=== PATIENT | male | born 1950 | race Caucasian/White ===

== ENCOUNTER 2018-11-28 05:41 | Day surgery (SDC) | payer OTHER ==
[~2018-11-28] VITALS: Ht 175.3 cm; Wt 89.8 kg
[~2018-11-28 05:41] MED LIST: AMLODIPINE BESY10 MG PO; COREG6.25 MG PO; HYDROCHLOROTH12.5 M2 PO; HYDROXYCHLOROQ200 M1 PO; LEFLUNOMIDE 1010 MG PO; MOBIC15 MG PO; PREDNISONE 5 MG5 M1 PO; RITUXAN100 MG/10 IV; SYNTHROID50 MCG PO; VENTOLIN HFA 1818 GM INH; VITAMIN D1000 UNI1 PO
[2018-11-28 09:52] VITALS: BP 155/83
--- NOTE | 2018-12-02 06:23 | O ---
[address] [place] [address] OPERATIVE REPORT Name: JEMAL BRYSON Room #: DEP [facility] M..#: [id number] Admission: 11/28/18 ������������������ Attend Phys: Paul Marshall MD Discharge: 11/28/18 ������������������ Date of : 48 Report #: [id number] THIS REPORT FOR: //name// CC: Parish Marshall DATE OF SERVICE: 11/28/2018 PREOPERATIVE DIAGNOSIS: Right orbital dermal lipoma. POSTOPERATIVE DIAGNOSIS: Right orbital dermal lipoma. PROCEDURE: Right transconjunctival orbitotomy. SURGEON: Paul Marshall M.D. ADMINISTRATION CLERK: None. ANESTHESIA: General. COMPLICATIONS: None. SPECIMEN: To path. 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 In addition, he has conjunctival scarring that has gone all the way into his cornea from the ectropion effect on the conjunctival surface. He presents today for a transconjunctival approach to the lesion. Informed consent was obtained to include but not limited to the potential risk for loss of vision, bleeding, infection, double vision and the potential need for further surgery or treatment. DESCRIPTION OF PROCEDURE: The patient was taken to the operating room where general anesthesia was administered. The patient was subsequently prepped and draped in the usual sterile fashion. A transconjunctival injection of Xylocaine with epinephrine mixed with Marcaine and Wydase was administered supratemporally. An additional aliquot of anesthetic was administered over the right lateral canthus to achieve the 7th nerve block. The right upper lid was then distracted superiorly in the superotemporal quadrant of the globe inspected. A radial incision was then made with a Agus scissor and drawn down through the conjunctiva and through Tenon's capsule. It was then drawn down through the tissue that was overlying the orbital dermal [facility] [address] [place] [address] OPERATIVE REPORT Name: JEMAL BRYSON Jesse Room #: DEP [facility].#: [id number] Admission: 11/28/18 ������������������ Attend Phys: Paul Marshall MD Discharge: 11/28/18 ������������������ Date of : 48 Report #: [id number] lipoma. The dermal lipoma was grasped and delivered through the incision in a buttonhole like fashion, it from the underlying lacrimal gland and lateral rectus muscle. The mass was drawn anteriorly as thought far safe as possible prior to being clamped at its base and Tenon's capsule. The mass was then amputated with a high-temp cautery. That stump was then grasped with the Juan forceps as the Monique clamp was released. Hemostasis was achieved with pinpoint monopolar cautery. The stump was then released to retract back into the orbit. None of the residual mass appeared anteriorly. It was all behind the equator. The conjunctival incision was then enclosed with interrupted buried 6-0 plain gut sutures. The wound was then cleaned and dressed with erythromycin ophthalmic ointment. The patient subsequently transported to the recovery area having tolerated the procedures well with no anesthetic or operative complications being noted. ��������������������������������������������� <ELECTRONICALLY SIGNED> ���������������������������������������� By: Paul Marshall MD ��������������������������������������������� 12/02/18 0623 1019 1049 Paul Marshall MD /nt
--- NOTE | 2018-12-16 12:07 | PATH ---
[facility] [address] [place] [address] PATHOLOGY RPT PROCEDURE Name: JEMAL HUGHES Jesse Room #: DEP [facility] M.R.#: [id number] ������������������ Admission: 11/28/18 ������������������ Date of : 48 Discharge: 11/28/18 Report #: [id number] Path Case #: [id number] [facility] Accession Number: [id number] . 01 Material submitted: . RIGHT ORBITAL DERMAL LIPOMA . 01 Clinical history: . Dermolipoma right . 02 Diagnosis: Right orbital dermal lipoma, excision: - Mature adipose tissue associated with reactive changes, compatible with lipoma (please see comment). LBQ/12/12/2018 . 02 Comment: Nuclear enlargement and mild atypia were identified on the initial routine examination. An immunohistochemical stain MDM2 is performed on block A1 and it shows no evidence of nuclear reactivity present. The lack of reactivity supports the diagnosis of lipoma as rendered. (IUV/db; 12/12/2018) . Professional services performed by [facility] at [facility], [address] [place] [address].[place] [address]. Technical services performed by [facility], [address] [place] [address], [address], [place] [address]. . 02 Electronically signed: . Kamala Barrientos MD, Pathologist NPI- [id number] . 01 Gross description: . Received in formalin labeled "Jemal Hughes, right orbital dermal lipoma," is a roughly ovoid segment of pale yellow, pliable, lobulated adipose tissue measuring 1.5 x 0.9 x 0.6 cm in greatest dimensions. Sectioning reveals pale yellow cut surfaces. The specimen is bisected and submitted entirely in cassette A1. ([facility]; 11/29/2018) XDC/XDC . 02 Pathologist provided ICD-10: D17.30 . 02 CPT . 526904, G87269 Specimen Comment: A courtesy copy of this report has been sent to Specimen Comment: [phone], [phone]. [address] [address] PATHOLOGY RPT PROCEDURE Name: JEMAL HUGHES R Room #: DEP [facility] Gregg.David#: [id number] ������������������ Admission: 11/28/18 ������������������ Date of : 48 Discharge: 11/28/18 Report #: [id number] Path Case #: [id number] Specimen Comment: Report sent to / DR GUEVARA Specimen Comment: A duplicate report has been generated due to demographic updates. Performed at: [address] [facility], [place], [place] [id number] MD Gokul Good MD Phone: [phone] Performed at: [address] [facility] [id number] MD Kamala Barrientos MD Phone: [phone]
== END 2018-11-28 11:20 | disposition home or self-care (01) ==
LOC: TBA 05:41 → OR 05:41 → TBA 05:42 → OR 08:29
DX: D17.79 Benign lipomatous neoplasm of other sites (principal); I10 Essential (primary) hypertension; E78.5 Hyperlipidemia, unspecified; K21.9 Gastro-esophageal reflux disease without esophagitis; Z98.890 Other specified postprocedural states; Z87.891 Personal history of nicotine dependence; Z88.0 Allergy status to penicillin; Z79.899 Other long term (current) drug therapy
CPT/HCPCS: 50010; 50101; 50386; 50398; 51636; 56531; 62110; 62900; 64037; 70005

== ENCOUNTER 2019-01-16 05:20 | Day surgery (SDC) | payer OTHER ==
[~2019-01-16] VITALS: Ht 175.3 cm; Wt 92.5 kg
[~2019-01-16 05:20] MED LIST changes: +FOLIC ACID0.4 MG PO
[2019-01-16 09:01] LABS: CALCIUM 9.2 mg/dL (8.5-10.1); CREATININE 0.8 mg/dL (0.7-1.3); POTASSIUM 3.5 mmol/L (3.5-5.1)
[2019-01-16 09:27] VITALS: BP 159/89
--- NOTE | 2019-01-20 06:18 | O ---
[address] [address] OPERATIVE REPORT Name: JEMAL BRYSON Room #: [facility] M.R.#: [id number] Admission: 01/16/19 ������������������ Attend Phys: Paul Marshall MD Discharge: 01/16/19 ������������������ Date of : 48 Report #: [id number] THIS REPORT FOR: //name// CC: LINDA Marshall DATE OF SERVICE: 01/16/2019 PREOPERATIVE DIAGNOSIS: Left orbital dermal lipoma. POSTOPERATIVE DIAGNOSIS: Left orbital dermal lipoma. PROCEDURE: Left transconjunctival orbitotomy. SURGEON: Paul Marshall M.D. INVESTMENT ACCOUNTING CLERK: None. ANESTHESIA: General. COMPLICATIONS: None. 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 He presents today for a transconjunctival orbitotomy in order to improve the situation. Informed consent was obtained to include but not limited to the potential risk for loss of vision, bleeding, infection, failure to improve the problem, and the potential need for further surgery or treatment. DESCRIPTION OF PROCEDURE: The patient was taken to the operating room where general anesthesia was administered. The left lateral orbit was then anesthetized with Xylocaine with epinephrine mixed with Marcaine and Wydase. The patient was subsequently prepped and draped in the usual sterile fashion. The left upper lid was then distracted superiorly as the superior lateral orbit was approached transconjunctivally. A radial incision was made through the conjunctivae and drawn down in the superior lateral quadrant in between the lateral rectus and the superior rectus muscles. The resection was then carried down on to Tenon capsule. Tenon capsule was then entered, following which the mass was visible. The mass was teased free through the rent in Tenon capsule and drawn anteriorly. Care was taken to not unduly manipulate the lateral rectus muscle of the lacrimal gland or the superior rectus muscle, which were all within the dissection. The mass was drawn anteriorly, following which it was clamped with a Leal clamp and then debulked with a high-temp cautery. [address] [address] OPERATIVE REPORT Name: JEMAL BRYSON Jesse Room #: [facility] M.Jesse.#: [id number] Admission: 01/16/19 ������������������ Attend Phys: Paul Marshall MD Discharge: 01/16/19 ������������������ Date of : 48 Report #: [id number] The stump was grasped as the clamp was released and hemostasis achieved with diligent monopolar cautery. An additional section of the mass was then undertaken as well, drawing it shortly behind the equator. The wound was inspected to ensure that no bleeding ensued. The transconjunctival incision was then closed with interrupted 6-0 plain gut sutures with buried knots. The wounds were then cleaned and dressed with erythromycin ointment, and the patient subsequently transported to the recovery area having tolerated the procedure well with no anesthetic or operative complications being noted. ��������������������������������������������� <ELECTRONICALLY SIGNED> ���������������������������������������� By: Paul Marshall MD ��������������������������������������������� 01/20/19 0618 1023 1149 Paul Marshall MD /nt
--- NOTE | 2019-01-20 13:12 | PATH ---
[facility] [address] [place] [address] PATHOLOGY RPT PROCEDURE Name: JEMAL HUGHES Jesse Room #: DEP [facility] M.R.#: [id number] ������������������ Admission: 01/16/19 ������������������ Date of : 48 Discharge: 01/16/19 Report #: [id number] Path Case #: [id number] [facility] Accession Number: [id number] . 01 Material submitted: . LEFT ORBITAL MASS . 01 Clinical history: . Dermolipoma, left. . 02 Diagnosis: Left orbital mass, excision: - Compatible with a lipoma (please see comment). LBQ/01/17/2019 . 02 Comment: Examination shows a neoplasm comprised of mature adipose cells with focal multinucleation and prominent nuclei. The prior resection specimen [id number] showed similar morphological changes. MDM immunohistochemical stain was performed on that specimen and it showed no reactivity present. It is not repeated on the current specimen. Findings are compatible with reactive changes and fat necrosis within this lipoma. (IUV/db; 01/17/2019) . 02 Electronically signed: . Kamala Barrientos MD, Pathologist NPI- [id number] . 01 Gross description: . Received in formalin labeled "Jemal Hughes, left orbital mass" is a 1.8 x 1.5 x 0.3 cm aggregate of yellow-buckley lobulated fibroadipose tissue. The specimen is submitted without sectioning in cassette A1. ([facility]; 01/16/2019) SY/SY . 02 Pathologist provided ICD-10: D17.79 . 02 CPT . 921534 Specimen Comment: A courtesy copy of this report has been sent to Specimen Comment: [phone], . Specimen Comment: Report sent to / DR GUEVARA Performed at: [address] [id number] MD Gokul Good MD Phone: [phone] Performed at: 02 [place] [address] PATHOLOGY RPT PROCEDURE Name: JEMAL HUGHES Room #: DEP [facility] M.David#: [id number] ������������������ Admission: 01/16/19 ������������������ Date of : 48 Discharge: 01/16/19 Report #: [id number] Path Case #: [id number] [facility] [address] [id number] MD Kamala Barrientos MD Phone: [phone]
== END 2019-01-16 11:13 | disposition home or self-care (01) ==
LOC: OR 05:20 → TBA 05:20 → OR 11:13
PROVIDERS: Ophthalmology
DX: D17.0 Benign lipomatous neoplasm of skin and subcutaneous tissue of head, face and neck (principal); Z87.891 Personal history of nicotine dependence; Z98.890 Other specified postprocedural states; Z79.899 Other long term (current) drug therapy; I10 Essential (primary) hypertension; M19.90 Unspecified osteoarthritis, unspecified site; E03.9 Hypothyroidism, unspecified
CPT/HCPCS: 50010; 50101; 50386; 50398; 51636; 56531; 62110; 62900; 64037; 70005

== ENCOUNTER → 2021-09-01 | Day surgery (SDC) | payer OTHER ==
[~2021-09-01] VITALS: Ht 175.3 cm; Wt 85.7 kg
[~2021-09-01] MED LIST changes: +FISH OIL 1,2001 EAC4 PO; +OFEV100 MG PO; -PREDNISONE 5 MG5 M1 PO; +PREDNISONE 5 MG5 MG PO
--- NOTE | ~2021-09-01 | O ---
[facility] [place] [address] OPERATIVE REPORT Name: JEMAL BRYSON Room #: [facility].#: [id number] Admission: 09/01/21 Attend Phys: Paul Marshall MD Discharge: Date of : 48 Report #: [id number] THIS REPORT FOR: cc: LANA SHANNON MD, HERBERT A. MD White, William L. MD ~ cc: Parish Leos OD, Lana Shannon MD DATE OF SERVICE: 09/01/2021 SURGEON: Paul Marshall MD FLUID DESIGNER: None. PREOPERATIVE DIAGNOSIS: Bilateral lower lid ectropion. POSTOPERATIVE DIAGNOSIS: Bilateral lower lid ectropion. OPERATION PERFORMED: Bilateral lower lid ectropion repair. ANESTHESIA: Local with IV sedation. COMPLICATIONS: None. INDICATIONS FOR PROCEDURE: This patient has bilateral acquired lower lid ectropion with chronic tearing, keratopathy and discharge. The current procedures are undertaken in order to improve the patient's visual function, lacrimal outflow, and level of comfort. Informed consent was obtained to include but not limit to the risk of loss of vision, bleeding, infection, scarring, failure to improve the problem and need for further surgery. DESCRIPTION OF OPERATION: The patient was taken to the operating room where 2% Xylocaine with epinephrine mixed with equal parts of 0.75% Marcaine with Wydase was administered transcutaneously and transconjunctivally to each lower lid and lateral canthal area. The patient was then prepped and draped in the usual sterile fashion. A Monique clamp was then used to clamp the left lateral canthus following which a sharp canthotomy and cantholysis were performed. The tarsal strip was prepared laterally, removing the lash bearing portion of the redundant lid margin and the redundant tarsal plate. Hemostasis was achieved with a monopolar cautery, as it was throughout the case. The tarsal strip was then secured to the internal portion of the lateral orbital tubercle with two interrupted 5-0 Prolene sutures. The lateral canthal angle was sharply reformed as the subcutaneous structures and the skin were closed with multiple interrupted 6-0 plain gut sutures. Attention was then turned to the right side where the same procedure was [facility] [address] [place] [address] OPERATIVE REPORT Name: JEMAL BRYSON Jesse Room #: [facility].#: [id number] Admission: 09/01/21 Attend Phys: Paul Marshall MD Discharge: Date of : 48 Report #: [id number] performed. The wounds were cleaned and dressed with ophthalmic antibiotic ointment. The patient was then transported to the recovery area, having tolerated the procedure well with no anesthetic or operative complications being noted. By: 0916 Paul Marshall MD /nt
[2021-09-01 09:24] VITALS: BP 146/84
== END | disposition home or self-care (01) ==
LOC: OR 07:30
PROVIDERS: ATTEND Ophthalmology
DX: H02.105 Unspecified ectropion of left lower eyelid (principal); H02.102 Unspecified ectropion of right lower eyelid; I10 Essential (primary) hypertension; M19.90 Unspecified osteoarthritis, unspecified site; M06.9 Rheumatoid arthritis, unspecified; E03.9 Hypothyroidism, unspecified; Z98.890 Other specified postprocedural states; Z20.822 Contact with and (suspected) exposure to COVID-19; Z79.899 Other long term (current) drug therapy; Z88.0 Allergy status to penicillin
CPT/HCPCS: 50010; 50101; 50386; 50398; 51636; 56527; 56531; 62110; 62850; 70005